=== PATIENT | male | born 1970 | race Caucasian/White ===

== ENCOUNTER → 2016-07-23 | Emergency (ER) | payer OTHER ==
[~2016-07-23] VITALS: Ht 165.1 cm; Wt 75.5 kg
[~2016-07-23] MED LIST: ALBU18HF INHALATION; HYDR-906 PO; HYDROCODONE/APAP (10/325) TAB PO ONE
[2016-07-23 20:52] VITALS: Ht 165.1 cm; Wt 75.5 kg
--- NOTE | 2016-07-23 23:08 | RADRPT ---
PROCEDURE: XR Chest. CLINICAL INDICATION: Chest trauma with contusion and pain. TECHNIQUE: PA and Lateral views of the chest were obtained. COMPARISON: None. FINDINGS: Cardiomegaly. Mild atelectasis at the left lung base. The lungs are otherwise clear. No signs of p leural fluid or pneumothorax are seen. The osseous structures and soft tissues are unremarkable. IMPRESSION: Cardiomegaly and mild atelectasis at the left lung base. RPTAT: [facility] Physician Ross Date Time Electronically viewed and signed by Physician Ross on 07/23/2016 23:07 RS/
--- NOTE | 2016-07-23 23:46 | ERD ---
ER Documentation Chief Complaint Date/Time DATE: 07/23/16 TIME: 23:37 Chief Complaint tripped and fell x 3 days ago, c/o abrasions on chest/chin. low back pain HPI Pleasant 46-year-old male patient reports mechanical trip and fall 2 nights ago. Patient states he stumbled over a rock fell chest forward onto the ground , hit his chin, and states he did not stick his arms out to stop the fall. Patient reports brief period of having the wind knocked out of him, denies loss of consciousness or head contusion. Patient reports pain with deep breathing, having difficulty finding position of comfort for sleep. Pain is 8/10 on pain scale with movement. ROS All systems reviewed and are negative except as per history of present illness. Medications Home Meds No Active Prescriptions or Reported Meds Allergies Allergies: Coded Allergies: No Known Allergy (Unverified , 07/23/16) PMhx/Soc History of Surgery: No Anesthesia Reaction: No Hx Neurological Disorder: No Hx Respiratory Disorders: No Hx Cardiac Disorders: No Hx Psychiatric Problems: No Hx Miscellaneous Medical Probl: No Hx Alcohol Use: Yes Hx Substance Use: No Hx Tobacco Use: Yes Smoking Status: Current some day smoker Physical Exam Vitals Vital Signs Date Time Temp Pulse Resp B/P Pulse Ox O2 Delivery O2 Flow Rate FiO2 07/23/16 20:52 98.3 68 20 140/80 98 Vitals stable nursing notes reviewed Physical Exam Const: No acute distress Head: Atraumatic Eyes: ENT: Normal External Ears, Nose and Mouth. Superficial abrasion under left side of jaw. Patient has full range of motion of mandible, no temporomandibular joint tenderness, patient able to open and close his mouth, able to bite down hard on his teeth, tongue is midline, mucous membranes moist Neck: Full range of motion.. Rotation, flexion, extension, and lateral bending, no cervical point tenderness, no paraspinal tenderness Resp: Clear to auscultation bilaterally, diminished bases bilaterally Cardio: Regular rate and rhythm, no murmurs Abd: Skin: Back: Ext: Neur: Awake and alert Psych: Normal Mood and Affect Results 24 hrs Current Medications Medications (Trade) Dose Ordered Sig/Moise Route PRN Reason Start Time Stop Time Status Last Admin Dose Admin Acetaminophen/ Hydrocodone Bitart ([place] (10/325)) 2 tab ONCE ONCE PO 07/23/16 22:00 07/23/16 23:06 DC Acetaminophen/ Hydrocodone Bitart ([place] (10325)) 1 tab ONCE ONCE PO 07/23/16 23:30 07/23/16 23:31 DC 07/23/16 23:08 Procedures/MDM PROCEDURE: XR Chest. CLINICAL INDICATION: Chest trauma with contusion and pain. TECHNIQUE: PA and Lateral views of the chest were obtained. COMPARISON: None. FINDINGS: Cardiomegaly. Mild atelectasis at the left lung base. The lungs are otherwise clear. No signs of pleural fluid or pneumothorax are seen. The osseous structures and soft tissues are unremarkable. IMPRESSION: Cardiomegaly and mild atelectasis at the left lung base. RPTAT: [facility] Physician Ross Date Time Electronically viewed and signed by Physician Ross on 07/23/2016 23:07 Pleasant 46-year-old male patient comes in with significant other reporting mechanical trip and fall 2 nights ago. Patient reports tripping and falling onto his chest, he did not out reach his hands to break his fall fell directly on his chest. Patient obtained superficial chin abrasion with no malocclusion of jaw. Patient has pain with deep breathing. Rib fracture ruled out on x- ray. Atelectasis is seen. I feel pain control and worsening of atelectasis is of primary concern, patient will be prescribed pain medication and albuterol inhaler, follow-up with primary care physician. I feel the patient is stable for discharge at this time. I have discussed results, examination findings, the treatment plan with the patient and family present prior to discharge. Indications for emergent reevaluation worsening of chest pain, fever, cough, shortness of breath, side effects of medication were also discussed. All questions were answered. Patient verbalizes understanding and agrees with plan of care. Departure Diagnosis: Primary Impression: Chest wall contusion Condition: Good Patient Instructions: Chest Wall Contusion Additional Instructions: Thank you for for coming to [facility] for your care today. Please ask your nurse or provider if you have questions about your care today and do not leave until all your questions have been answered. Please use any medications given as directed and follow-up with your doctor (or the doctor you were referred to) in the next 2-3 days. If you do not have a primary care doctor you may follow up at the [facility] [place] (listed below). You may also use motrin and tylenol as needed for fever and/or pain unless instructed otherwise by your provider or nurse. Indications for more urgent follow-up have been discussed, but you may return to the Emergency Department at ANY time for any worrisome or worsening symptoms. If you have abdominal pain, please know that no test or exam you received is perfect and you should follow up within 8 hours for continued pain. If you had any imaging studies today, such as an X-Ray or CT Scan, these studies will be reviewed later by a radiologist. You will be called if there are important findings that were not identified today, so make sure the contact information you provided at registration is correct. If you received any narcotic pain control medicine today, such as Vicodin, Morphine or Dilaudid, your coordination and judgment may be affected for a number of hours. Please do not drive or operate heavy machinery, and you may want someone to assist you at home. If you were given a prescription for narcotic medication, be aware that it is very addictive- use sparingly and only if necessary. JUAN DIEGO VENTURA Jul 23, 2016 23:46
[2016-07-24 00:07] VITALS: BP 107/59; PULSE 59; RESP 18; TEMP 98.7
== END | disposition home or self-care (01) ==
LOC: FTE 20:43
DX: S20.219A Contusion of unspecified front wall of thorax, initial encounter (principal); F17.210 Nicotine dependence, cigarettes, uncomplicated; W01.198A Fall on same level from slipping, tripping and stumbling with subsequent striking against other object, initial encounter; Y92.9 Unspecified place or not applicable
CPT/HCPCS: 71020; Z7502; Z7610